=== PATIENT | female | born 1995 | race Caucasian/White ===

== ENCOUNTER 2017-06-11 22:34 | Emergency (ER) | payer BC ==
[2017-06-11 23:21] LABS: Manual Entry Verification MER0007; UR Preg Internal Control QC Line Present
[2017-06-11 23:32] LABS: Urine Bacteria 3+ (Absent); Urine Bilirubin Negative (Negative); Urine Glucose Negative (Negative); Urine Nitrite Positive (Negative)
[2017-06-12] MEDS ORDERED: Ondansetron ODT TAB* 4 MG PO ONE (01:56)
[2017-06-12] MEDS ORDERED: Sulfamethox/Trimethoprim DS 800/160* TAB PO ONE (01:57)
--- NOTE | 2017-06-12 02:00 | ED ---
GI/ HPI - HPI Summary HPI Summary: 22F presents with dysuria, hematuria, urgency and frequency for 4 hours. She states it feels like a UTI which she has had in the past. She has not had a uti in a year. no flank pain or fever. admits to nausea but no vomiting. has not taken anything for pain. no history of kidney stones. no abdominal pain, diarrhea or constipation. She denies any vaginal discharge. is on control. - History of Current Complaint Chief Complaint: EDUrogenitalProblems Time Seen by Provider: 06/12/17 01:52 Stated Complaint: POSSIBLE UTI Pain Intensity: 3 - Allergy/Home Medications Allergies/Adverse Reactions: Allergies Allergy/AdvReac Type Severity Reaction Status Date / Time No Known Allergies Allergy Verified 06/11/17 22:40 PMH/Surg Hx/FS Hx/Imm Hx Endocrine/Hematology History: Denies: Hx Anticoagulant Therapy Cardiovascular History: Denies: Hx Hypertension Infectious Disease History: No Infectious Disease History: Denies: Traveled Outside the [place] in Last 30 Days - Family History Known Family History: Positive: Hypertension - Social History Alcohol Use: Occasionally Substance Use Type: Reports: None Smoking Status (MU): Never Smoked Tobacco Review of Systems Negative: Fever Negative: Chest Pain Negative: Shortness Of Breath Positive: Nausea. Negative: Abdominal Pain, Vomiting, Diarrhea Positive: dysuria. Negative: flank pain All Other Systems Reviewed And Are Negative: Yes Physical Exam Triage Information Reviewed: Yes Vital Signs On Initial Exam: Initial Vitals Temp Pulse Resp BP Pulse Ox 98.1 F 90 16 126/77 100 06/11/17 22:35 06/11/17 22:35 06/11/17 22:35 06/11/17 22:35 06/11/17 22:35 Vital Signs Reviewed: Yes Appearance: Positive: Well-Appearing Skin: Positive: Warm, Dry Head/Face: Positive: Normal Head/Face Inspection Eyes: Positive: Normal, Conjunctiva Clear Respiratory/Lung Sounds: Positive: Clear to Auscultation, Breath Sounds Present Cardiovascular: Positive: Normal, RRR Abdomen Description: Positive: Nontender, Soft Bowel Sounds: Positive: Present Musculoskeletal: Positive: Normal Neurological: Positive: Normal Psychiatric: Positive: Normal Diagnostics - Vital Signs Vital Signs Temp Pulse Resp BP Pulse Ox 06/12/17 00:35 98.1 F 78 16 110/67 100 06/11/17 22:35 98.1 F 90 16 126/77 100 - Laboratory Lab Results: Lab Results 06/11/17 Range/Units 22:50 Urine Color Chana Urine Appearance Turbid Urine pH 6.0 (5-9) Ur Specific [place] 1.028 (1.010-1.030) Urine Protein 2+(100 mg/dl) H (Negative) Urine Ketones Negative (Negative) Urine Blood 3+ H (Negative) Urine Nitrate Positive H (Negative) Urine Bilirubin Negative (Negative) Urine Urobilinogen Negative (Negative) Ur Leukocyte Esterase 2+ H (Negative) Urine WBC (Auto) 3+(>20/hpf) H (Absent) Urine RBC (Auto) 3+(>10/hpf) H (Absent) Urine Bacteria 3+ H (Absent) Urine Glucose Negative (Negative) Urine Ascorbic Acid Not Reportable Urine Test Negative (Negative) Lab Statement: Any lab studies that have been ordered have been reviewed, and results considered in the medical decision making process. GIGU Course/Dx - Course Course Of Treatment: 22F presents with dysuria, hematuria, urgency and frequency for 4 hours. She states it feels like a UTI which she has had in the past. She has not had a uti in a year. no flank pain or fever. admits to nausea but no vomiting. has not taken anything for pain. no history of kidney stones. no abdominal pain, diarrhea or constipation. nontender abdomen and no CVA tenderness. u/a shows leuko, nitrates, wbc. due to extensive amount of wbc will give script in case this becomes a pyelo. patient understands and agrees with plan. - Diagnoses Differential Diagnoses - Female: Pyelonephritis, Urinary Tract Infection, Ureteral Calculi Provider Diagnoses: UTI (urinary tract infection) Discharge - Discharge Plan Condition: Good Disposition: HOME Prescriptions: Ondansetron ODT TAB* [Zofran 4 MG Odt TAB*] 4 mg PO Q6H PRN #20 tab.odt PRN Reason: Nausea Sulfamethox/Trimethoprim DS* [Bactrim DS 800/160 TAB*] 1 tab PO BID #27 tab Patient Education Materials: Urinary Tract Infection in Women (ED) Referrals: No Primary Care Phys,NOPCP [Primary Care Provider] - Additional Instructions: Take antibiotic twice a day for 5 days, if symptoms continue take for 14 days total for potential pyelo Drink plenty of water Use alternative forms of control Take zofran every 6 hours for nausea Take Tylenol or ibuprofen every 6 hours as needed for pain and fever Return to ED if develop severe vomiting, or any new or worsening symptoms
[2017-06-12 02:11] VITALS: BP 118/67
== END 2017-06-12 02:14 | disposition home or self-care (01) ==
LOC: ED 22:34
DX: N39.0 Urinary tract infection, site not specified (principal); R31.9 Hematuria, unspecified; R11.0 Nausea; R30.0 Dysuria
CPT/HCPCS: 81003; 81015; 81025; 87086; 99282; A9270-GY